=== PATIENT | female | born 1990 | race Two or more races ===

== ENCOUNTER 2024-04-01 15:15 | Inpatient (IN) ==
[2024-04-01] MEDS: LR 1,000 ML IV 1,000 ML IV ONE (15:25)
[2024-04-01] MEDS ORDERED: PITOCIN IVP ONE (15:26)
[2024-04-01] MEDS ORDERED: ZOFRAN INJ 4 MG VIAL IVP PRN (15:26)
[2024-04-01] MEDS ORDERED: REGLAN INJ 10 MG VIAL IVP PRN (15:26)
[2024-04-01] MEDS: OXYTOCIN 20 UNIT/1,000 ML-NS 20 UNIT/1,000 ML PLAST..BAG IV PRN (15:45)
[2024-04-01 16:08] LABS: BASOPHILS % (AUTO) 0.3 % (0.2-1.0); EOSINOPHILS # (AUTO) 0.1 x10^3/uL (0.0-0.2); EOSINOPHILS % (AUTO) 0.6 % (0.9-2.9); HEMATOCRIT 26.5 % (36.0-47.0); HEMOGLOBIN 8.1 g/dL (12.0-16.0); LYMPHOCYTES % (AUTO) 22.1 % (21.0-51.0); MEAN CORPUSCULAR HEMOGLOBIN 19.1 pg (27.0-34.0); MEAN CORPUSCULAR HGB CONC 30.7 g/dL (33.0-35.0); MEAN CORPUSCULAR VOLUME 62.3 fL (80.0-100.0); MEAN PLATELET VOLUME 10.1 fL (7.4-11.0); MONOCYTES # (AUTO) 0.5 x10^3/uL (0.3-0.8); MONOCYTES % (AUTO) 5.6 % (0.0-13.0); NEUTROPHILS # (AUTO) 6.4 x10^3/uL (2.2-4.8); NEUTROPHILS % (AUTO) 71.4 % (42.0-75.0); PLATELET COUNT 225 X10^3/uL (150.0-450.0); RED BLOOD COUNT 4.26 X10^6/uL (3.5-5.4); RED CELL DISTRIBUTION WIDTH 18.6 % (11.6-16.5); WHITE BLOOD COUNT 8.9 X10^3/uL (3.6-10.0)
[2024-04-01 16:12] LABS: BILIRUBIN,URINE NEGATIVE (NEGATIVE); BLOOD/HEMOGLOBIN,URINE NEGATIVE (NEGATIVE); GLUCOSE, URINE NEGATIVE (NEGATIVE); KETONES,URINE NEGATIVE (NEGATIVE); LEUKOCYTE ESTERASE ,URINE 2+ (NEGATIVE); NITRITES,URINE NEGATIVE (NEGATIVE); PROTEIN,URINE 1+ (NEGATIVE); UROBILINOGEN,URINE NORMAL (NORMAL)
[2024-04-01 16:14] LABS: APPEARANCE,URINE SLIGHTLY HAZY (CLEAR); COLOR,URINE YELLOW (YELLOW)
[2024-04-01 16:17] LABS: BLOOD UREA NITROGEN 9 mg/dL (7-18); CALCIUM 8.4 mg/dL (8.5-10.1); CARBON DIOXIDE 23.9 mmol/L (21-32); CHLORIDE 102 mmol/L (98-107); CREATININE 0.66 mg/dL (0.55-1.02); GLUCOSE 86 mg/dL (65-99); POTASSIUM 3.8 mmol/L (3.5-5.1); SODIUM 136 mmol/L (136-145); eGFR NON BLACK RACES > 60 (>60)
[2024-04-01 16:23] LABS: BACTERIA,URINE TRACE /HPF (NEGATIVE); RBC,URINE NONE SEEN /HPF (0-3); SQUAMOUS EPITHELIAL CELL,UR MODERATE /HPF (NEGATIVE)
[2024-04-01] MEDS ORDERED: NUBAIN INJ 10 MG AMP ONE (16:44)
[2024-04-01] MEDS: NUBAIN INJ 20 MG AMP IVP PRN (16:45)
[2024-04-01 17:02] LABS: ANISOCYTOSIS SLIGHT; HYPOCHROMASIA 2+; MICROCYTOSIS 2+; PLATELET MORPHOLOGY COMMENT NORMAL (NORMAL)
[2024-04-01] MEDS ORDERED: BETADINE SOLN ONE (18:39)
[2024-04-01] MEDS ORDERED: PITOCIN ONE (18:40)
[2024-04-01] MEDS ORDERED: OXYTOCIN 20 UNIT/1,000 ML-NS 20 UNIT/1,000 ML PLAST..BAG IV SCH (19:30)
[2024-04-01] MEDS ORDERED: DERMOPLAST PAIN RELIEF SPRAY TOP PRN (20:24)
[2024-04-01] MEDS ORDERED: AMBIEN PO PRN (20:24)
[2024-04-01] MEDS ORDERED: MILK OF MAGNESIA PO PRN (20:24)
[2024-04-01] MEDS: MOTRIN TAB 800 MG PO PRN (23:37)
[2024-04-02 05:21] LABS: HEMATOCRIT 22.6 % (36.0-47.0)
[2024-04-02 05:35] LABS: HEMOGLOBIN 6.8 g/dL (12.0-16.0)
[2024-04-02] MEDS ORDERED: INFED OR DEXFERRUM IV ONE (06:53)
[2024-04-02] MEDS ORDERED: NS IV ONE (06:53)
[2024-04-02] MEDS: NS 100 ML IV 100 ML with VENOFER 400 MG IV ONE (08:56)
[2024-04-02] MEDS: PRENATAL PLUS PO SCH (09:01)
[2024-04-02] MEDS ORDERED: ADACEL or BOOSTRIX TDaP VACCINE IM ONE (17:21)
[2024-04-02] MEDS: ADACEL or BOOSTRIX TDaP VACCINE IM ONE (17:32)
[2024-04-03] MEDS: NS 100 ML IV 100 ML with VENOFER 400 MG IV ONE (05:35)
[2024-04-03 08:33] VITALS: BP 121/64; PULSE 63; RESP 18; TEMP 97.6; O2SAT 99
== END 2024-04-03 11:40 | disposition home or self-care (01) | DRG 807 ==
LOC: EDBD → LD 15:26 → MED/SURG 20:25
PROVIDERS: ADMIT Obstetrics & Gynecology Obstetrics; ATTEND Obstetrics & Gynecology Obstetrics
DX: Z37.0 Single live birth; O80 Encounter for full-term uncomplicated delivery; Z3A.40 40 weeks gestation of pregnancy